=== PATIENT | male | born 1975 | race Caucasian/White ===

== ENCOUNTER 2018-09-15 09:42 | Emergency (ER) | payer OTHER ==
[2018-09-15] MEDS ORDERED: FAMOTIDINE 20 MG TABLET PO ONE (10:01)
[2018-09-15] MEDS ORDERED: DEXAMETHASONE SOD PHOS INJ 10 MG/1 ML VIAL IV ONE (10:01)
[2018-09-15] MEDS ORDERED: HYDRALAZINE HCL INJ/PF 20 MG/1 ML SDV IV ONE (10:01)
--- NOTE | 2018-09-15 10:04 | ER Document Report ---
ED Medical Screen (RME) - General Chief Complaint: Allergic Reaction Stated Complaint: POSSIBLE ALLERGIC REACTION Time Seen by Provider: 09/15/18 10:01 Mode of Arrival: Ambulatory Information source: Patient Notes: 43-year-old male with recurrent of allergic reaction with hives and swelling difficulty eating since . [facility] today and they sent him to the emergency room to be tested and treated for allergic reaction. He does have an elevated pulse of the 140s to 150s elevated blood pressure and having trouble eating anything besides water. He states that when he does eat something he within several hours still as a back-up. He is not having any trouble breathing at this time. Lungs are clear to auscultation O2 sat is 96%. I have ordered him hydroxyzine, Pepcid, and Decadron and he will be seen by another provider. I have greeted and performed a rapid initial assessment of this patient. A comprehensive ED assessment and evaluation of the patient, analysis of test results and completion of medical decision making process will be conducted by an additional ED providers. TRAVEL OUTSIDE OF THE [place] IN LAST 30 DAYS: No - Related Data Allergies/Adverse Reactions: Penicillins Allergy (Verified 09/15/18 09:47) Past Medical History - Social History Chew tobacco use (# tins/day): No Frequency of alcohol use: None Drug Abuse: None Renal/ Medical History: Denies: Hx Peritoneal Dialysis Past Surgical History: Reports: Hx Oral Surgery Physical Exam - Vital signs Vitals: Temp Pulse Resp BP Pulse Ox 98.0 F 146 H 16 147/121 H 94 09/15/18 09:47 09/15/18 09:47 09/15/18 09:47 09/15/18 09:47 09/15/18 09:47 Course - Vital Signs Vital signs: Temp Pulse Resp BP Pulse Ox 98.0 F 146 H 16 147/121 H 94 09/15/18 09:47 09/15/18 09:47 09/15/18 09:47 09/15/18 09:47 09/15/18 09:47
[2018-09-15] MEDS ORDERED: METHYLPREDNISOLONE INJ 125 MG/2 ML SDV IV ONE (10:14)
[2018-09-15] MEDS ORDERED: EPINEPHRINE INJ/PF 1 MG/1 ML AMPULE IM ONE (10:14)
[2018-09-15] MEDS ORDERED: ONDANSETRON HCL INJ/PF 4 MG/2 ML SDV IV ONE (10:14)
[2018-09-15] MEDS ORDERED: DIPHENHYDRAMINE HCL 50 MG/ML VIAL IV ONE (10:15)
[2018-09-15] MEDS: NORMAL SALINE 1000 ML 1,000 ML IV PRN ×2 (10:43→10:44)
--- NOTE | 2018-09-15 14:50 | ER Document Report ---
ED General - General Chief Complaint: Allergic Reaction Stated Complaint: POSSIBLE ALLERGIC REACTION Time Seen by Provider: 09/15/18 10:01 Primary Care Provider: RAY COOK [Primary Care Provider] - Follow up as needed Mode of Arrival: Ambulatory TRAVEL OUTSIDE OF THE [place] IN LAST 30 DAYS: No - HPI Notes: Patient presents to the emergency department for evaluation of hives and vomiting. His symptoms have been ongoing since . He believes it was from a new food exposure, although he cannot pinpoint exactly what it is. He is been taking Benadryl with minimal relief. He has been swallowing without difficulty, breathing without difficulty, but vomits up nearly all solids he takes in. He has no history of food allergies, is only allergic to penicillin. He is sure he was not exposed to that. - Related Data Allergies/Adverse Reactions: Penicillins Allergy (Verified 09/15/18 09:47) Past Medical History - General Information source: Patient - Social History Smoking Status: Never Smoker Chew tobacco use (# tins/day): No Frequency of alcohol use: None Drug Abuse: None Family History: Reviewed & Not Pertinent Patient has suicidal ideation: No Patient has homicidal ideation: No Renal/ Medical History: Denies: Hx Peritoneal Dialysis Past Surgical History: Reports: Hx Oral Surgery Review of Systems - Review of Systems Constitutional: No symptoms reported EENT: No symptoms reported Cardiovascular: No symptoms reported Respiratory: No symptoms reported Gastrointestinal: See HPI Genitourinary: No symptoms reported Musculoskeletal: No symptoms reported Skin: See HPI Neurological/Psychological: No symptoms reported Physical Exam - Vital signs Vitals: Temp Pulse Resp BP Pulse Ox 98.0 F 146 H 16 147/121 H 94 09/15/18 09:47 09/15/18 09:47 09/15/18 09:47 09/15/18 09:47 09/15/18 09:47 - Notes Notes: Vital signs reviewed, please refer to chart. Head is normocephalic, atraumatic. Pupils equal round, reactive to light. No swelling of the lips or tongue, pharynx is within normal limits. Neck is supple without meningismus. Heart is tachycardic with normal S1-S2. Lungs are clear to auscultation bilaterally. Abdomen is soft, nontender, normoactive bowel sounds throughout. Extremities without cyanosis, clubbing. Posterior calves are nontender. Peripheral pulses are equal. Skin is warm, scattered urticaria noted to the right side of the face, anterior chest, back, and all 4 extremities. He does have moderate swelling of the hands. Sensation is intact, capillary refill is brisk. Patient is awake, alert, neurological exam is nonfocal. Course - Re-evaluation Re-evalutation: 09/15/18 14:44 Patient presents to the emergency department for evaluation. Given his multisystem involvement, the patient is in anaphylaxis. He is administered IM epinephrine, Solu-Medrol, Pepcid, Benadryl, IV fluids. He is monitored here for over 4 hours. He had significant improvement in his symptoms. He never deve loped difficulty breathing or swallowing. The patient was counseled on the findings of anaphylaxis. I will write him a prescription for an epinephrine pen. We will also write him a prednisone taper, he is told to take Benadryl [id number] for the next 48 hours. We will also write him a prescription for Pepcid. He is to follow-up closely with primary care, return to the emergency department with worsening or new concerning symptoms. - Vital Signs Vital signs: Temp Pulse Resp BP Pulse Ox 98.0 F 146 H 30 H 124/78 96 09/15/18 09:47 09/15/18 09:47 09/15/18 11:01 09/15/18 11:01 09/15/18 11:01 Discharge - Discharge Clinical Impression: Anaphylaxis Qualifiers: Encounter type: initial encounter Qualified Code(s): T78.2XXA - Anaphylactic shock, unspecified, initial encounter Condition: Stable Disposition: HOME, SELF-CARE Instructions: Anaphylaxis Kit ([facility]) Additional Instructions: Carry EpiPen with you. Take Benadryl as discussed. Pepcid as discussed. Take all of the prednisone as directed until gone. Follow-up with your doctor this week. Return to the emergency department with worsening or new concerning symptoms. Referrals: [facility] [Primary Care Provider] - Follow up as needed
[2018-09-15 15:12] VITALS: BP 128/70
--- NOTE | 2018-09-15 16:11 | EKG REPORT ---
SEVERITY:- BORDERLINE ECG - SINUS TACHYCARDIA BORDERLINE T ABNORMALITIES, INFERIOR LEADS : Confirmed by: Mile Robles MD 15-Sep-2018 16:10:08
== END 2018-09-15 15:12 | disposition home or self-care (01) ==
LOC: ER 09:42
DX: T78.2XXA Anaphylactic shock, unspecified, initial encounter (principal); L50.9 Urticaria, unspecified; R11.10 Vomiting, unspecified; R00.0 Tachycardia, unspecified; Z88.0 Allergy status to penicillin
CPT/HCPCS: 93005; 99284; 96372; 96361; 96374; 96375; 93010; J1200; J0171; J2930; J2405; J7030